=== PATIENT | female | born 1995 | race Caucasian/White ===

== ENCOUNTER 2018-02-22 22:54 | Emergency (ER) | payer OTHER ==
--- NOTE | 2018-02-22 23:14 | EDPHY ---
H & P Stated Complaint: right flank/ abd pain x2 days, body aches, no appetite, davis, neg flu today Time Seen by Provider: 02/22/18 23:14 HPI/ROS: HPI CHIEF COMPLAINT: Urinary frequency, dysuria, muscle aches, low back pain HISTORY OF PRESENT ILLNESS: Very pleasant 22-year-old female, presents emergency room stating for the past 24-48 hours she has noticed some blood in her urine, urinary frequency, lower abdominal spasms, low back pain, muscle aches and chills. She has not any vomiting. Denies chest pain shortness of breath. Denies cough, denies sore throat or ear pain. Denies stiff neck. Past Medical History: Denies significant medical history Past Surgical History: Denies significant surgical history Social History: Denies drugs alcohol tobacco. [employer] student. Family History: Noncontributory ROS REVIEW OF SYSTEMS: 10 Systems were reviewed and negative with the exception of the elements mentioned in the history of present illness. Exam Constitutional nontoxic no acute distress, appears well triage nursing summary reviewed, vital signs reviewed, awake/alert. Vital signs reviewed. Heart rate was high at triage 120. Afebrile. Eyes normal conjunctivae and sclera, EOMI, PERRLA. HENT normal inspection, atraumatic, moist mucus membranes, no epistaxis, neck supple/ no meningismus, no raccoon eyes. Respiratory clear to auscultation bilaterally, normal breath sounds, no respiratory distress, no wheezing. Cardiovascular rate normal, regular rhythm, no murmur, no edema, distal pulses normal. Gastrointestinal soft, non-tender, no rebound, no guarding, normal bowel sounds, no distension, no pulsatile mass. Genitourinary no CVA tenderness. Musculoskeletal no midline vertebral tenderness, full range of motion, no calf swelling, no tenderness of extremities, no meningismus, good pulses, neurovascularly intact. Skin pink, warm, & dry, no rash, skin atraumatic. Neurologic awake, alert and oriented x 3, AAOx3, moves all 4 extremities equally, motor intact, sensory intact, CN II-XII intact, normal cerebellar, normal vision, normal speech. Psychiatric normal mood/affect. Heme/Lymph/Immune no lymphadenopathy. Differential Diagnosis: Includes but is not limited to in a particular order UTI, cystitis, pyelonephritis, dehydration, electrolyte disturbance, sepsis, bacteremia Medical Decision Making: Plan for this patient check UA, urine . P.o. Fluids. Re-evaluate Re-evaluation: Patient's initial urinalysis was not a clean catch. Plan for repeat urine. Repeat urinalysis does indicate 2+ leukocyte Estrace. White blood cells. Indicating UTI. The 1st urinalysis was a dirty catch. Was repeated. Here in emergency room the patient appears well nontoxic no acute distress. Vital signs are stable. I did offer her IV established blood draw however she has declined this. Does not want any IV or blood draw. Wants to be treated for UTI. Keflex prescription, 1st dose Keflex and peridium given in emergency room. Prescription for Keflex and peridium for home. Additionally return precautions discussed she understands return emergency develops worsening fever, vomiting, not doing well. Either recommended patient drinks lots of fluids stays well hydrated. Antibiotics as prescribed. Return precautions discussed with the patient. Source: Patient - Personal History LMP (Females 10-55): Extended Cycle BCP/Inj Current Tetanus/Diphtheria Vaccine: Unsure - Medical/Surgical History Hx Asthma: No Hx Chronic Respiratory Disease: No Hx Diabetes: No Hx Cardiac Disease: No Hx Renal Disease: No Hx Cirrhosis: No Hx Alcoholism: No Hx HIV/AIDS: No Hx Splenectomy or Spleen Trauma: No Other PMH: kidney stones - Social History Smoking Status: Never smoked Constitutional: Initial Vital Signs Temperature (C) 36.9 C 02/22/18 22:56 Heart Rate 120 H 02/22/18 22:56 Respiratory Rate 18 02/22/18 22:56 Blood Pressure 135/88 H 02/22/18 22:56 O2 Sat (%) 99 02/22/18 22:56 O2 Delivery Mode Room Air Allergies/Adverse Reactions: Sulfa (Sulfonamide Antibiotics) Allergy (Verified 02/22/18 23:01) Home Medications: Medication Instructions Recorded Cephalexin [Keflex] 500 mg PO Q6H #28 cap 02/22/18 [id number] Tablet 02/22/18 Phenazopyridine HCl [Pyridium] 200 mg PO TID #15 tab 02/22/18 Medical Decision Making - Data Points Medications Given: Discontinued Medications Cephalexin (Keflex 500 Mg Prepack#4) 1 btl TAKEHOME EDNOW ONE PRN Reason: Protocol Stop: 10/25/18 00:38 Last Admin: 02/23/18 00:47 Dose: 1 btl Cephalexin HCl (Keflex) 500 mg PO EDNOW ONE PRN Reason: Protocol Stop: 02/23/18 00:38 Last Admin: 02/23/18 00:48 Dose: 500 mg Sodium Chloride (Ns) 1,000 mls @ 0 mls/hr IV EDNOW ONE; Wide Open PRN Reason: Protocol Stop: 02/22/18 23:41 Last Admin: 02/23/18 00:42 Dose: Not Given Sodium Chloride (Ns) 1,000 mls @ 0 mls/hr IV EDNOW ONE; Wide Open PRN Reason: Protocol Stop: 02/22/18 23:41 Last Admin: 02/23/18 00:42 Dose: Not Given Departure - Departure Disposition: Home, Routine, Self-Care Clinical Impression: UTI (urinary tract infection) Qualifiers: Urinary tract infection type: acute cystitis Hematuria presence: with hematuria Qualified Code(s): N30.01 - Acute cystitis with hematuria Condition: Good Instructions: Cephalexin (By mouth), Urinary Tract Infection in Women (ED) Additional Instructions: 1. Drink lots of fluids stay well-hydrated 2. Alternate Tylenol and/or Motrin for fever pain control. 3. Antibiotics as prescribed 4. Return if worse. Referrals: TENNILLE PUENTE [Other] - As per Instructions Stand Alone Forms: School Excuse Prescriptions: Cephalexin [Keflex] 500 mg PO Q6H #28 cap Phenazopyridine HCl [Pyridium] 200 mg PO TID #15 tab
[2018-02-22] MEDS ORDERED: NS 1,000 ML IV ONE ×2 (23:40)
[2018-02-23] MEDS ORDERED: CEPHALEXIN 500MG PREPACK#4 BTL TAKEHOME ONE (00:37)
[2018-02-23] MEDS ORDERED: CEPHALEXIN 500 MG CAP PO ONE (00:37)
[2018-02-23 00:43] VITALS: BP 134/77
== END 2018-02-23 00:51 | disposition home or self-care (01) ==
DX: N30.01 Acute cystitis with hematuria (principal); E86.9 Volume depletion, unspecified; Z87.442 Personal history of urinary calculi; Z88.2 Allergy status to sulfonamides